=== PATIENT | male | born 1980 | race Caucasian/White ===

== ENCOUNTER → 2019-09-07 | Outpatient (CLI) | payer BC ==
--- NOTE | 2019-09-07 10:41 | KCIC ---
EXAM: Abdomen sonogram. HISTORY: Pain. TECHNIQUE: Sonographic imaging of the abdomen was performed. COMPARISON: None. FINDINGS: The liver is upper normal in size or mildly enlarged. No focal hepatic lesion is seen. The gallbladder is unremarkable. The common bile duct is normal in caliber. The right kidney and inferior vena cava are unremarkable. The pancreas is partially obscured due to bowel gas. IMPRESSION: 1. Upper normal or mildly enlarged liver size. No focal hepatic lesion is seen. 2. Obscured pancreas due to bowel gas. Electronically signed by: Milagro Spring MD (09/07/2019 10:38 AM) [id number]
== END | disposition home or self-care (01) ==
LOC: KCIC US 07:53
PROVIDERS: ATTEND Nurse Practitioner Family
DX: R10.11 Right upper quadrant pain (principal)
CPT/HCPCS: 76705